=== PATIENT | male | born 1950 | race Caucasian/White ===

== ENCOUNTER → 2017-06-03 | Outpatient (CLI) | payer MEDICARE, OTHER ==
[~2017-06-03] MED LIST: CIPRO 500MG TA500 MG PO; COLACE 100100 MG/CAP PO; FLAGYL500 MG PO; NO HOME MEDICATIONS; NORCO 325 MG-7.1 TAB PO; PERCOCET 325 MG1 TA2 PO; ZITHROMAX 250M250 MG PO
== END ==
LOC: COL.RAD 12:03
DX: K37 Unspecified appendicitis (principal)
CPT/HCPCS: Q9967

== ENCOUNTER 2018-03-21 19:09 | Emergency (ER) | payer OTHER, MEDICARE ==
[~2018-03-21] VITALS: Ht 177.8 cm; Wt 63.6 kg
[2018-03-21 19:12] VITALS: BP 167/93; TEMP 97.9
[2018-03-21] MEDS ORDERED: NORCO 325 MG-51 TAB PO (20:28)
[2018-03-21 20:40] VITALS: PULSE 75
== END 2018-03-21 20:40 | disposition home or self-care (01) ==
LOC: COL.ER 19:09
DX: S09.90XA Unspecified injury of head, initial encounter (principal); V89.2XXA Person injured in unspecified motor-vehicle accident, traffic, initial encounter; Z87.891 Personal history of nicotine dependence

== ENCOUNTER 2018-10-12 00:19 | Emergency (ER) | payer MEDICARE, OTHER ==
[~2018-10-12] VITALS: Ht 175.3 cm; Wt 60.5 kg
[~2018-10-12 00:19] MED LIST changes: +NORCO 325 MG-51 TAB PO
[2018-10-12 00:25] VITALS: BP 133/89; TEMP 99.3
[2018-10-12 01:19] VITALS: PULSE 81
== END 2018-10-12 01:20 | disposition home or self-care (01) ==
LOC: COL.ER 00:19
DX: T63.441A Toxic effect of venom of bees, accidental (unintentional), initial encounter (principal); Z88.0 Allergy status to penicillin; J44.9 Chronic obstructive pulmonary disease, unspecified
CPT/HCPCS: J8540

== ENCOUNTER 2019-08-10 18:09 | Inpatient (IN) | payer MEDICARE, OTHER ==
[~2019-08-10] VITALS: Ht 175.3 cm; Wt 61.4 kg
[2019-08-10 18:50] LABS: HEMATOCRIT 44.8 % (42.0-52.0); HEMOGLOBIN 14.9 g/dl (13.5-18.0); MEAN CELL VOLUME 91 fl (80.0-100.0); MEAN CORPUSCULAR HEMOGLOBIN 30 pg (27.0-31.0); MEAN CORPUSCULAR HGB CONC 33 g/dl (33.0-37.0); PLATELET COUNT 200 K/mm3 (130-400); RED BLOOD COUNT 4.92 M/mm3 (4.20-5.60)
[2019-08-10 19:03] LABS: ALBUMIN 4.3 gm/dL (3.5-5.0); CALCIUM 9.4 mg/dL (8.4-10.2); CREATININE, serum 0.69 (0.66-1.25); POTASSIUM 4.6 mmol/L (3.4-5.0); TOTAL PROTEIN 7.3 gm/dL (6.4-8.2)
[2019-08-10 20:12] LABS: COLLECTION METHOD CLEAN CATCH
[2019-08-10 20:24] LABS: MUCOUS Present /lpf; PH 5 (5-8); SQUAMOUS EPITHELIAL None Seen /hpf; URINE APPEARANCE Clear; URINE BACTERIA None Seen /hpf; URINE BILIRUBIN Negative (NEGATIVE); URINE BLOOD 2+ (NEGATIVE); URINE COLOR Yellow; URINE GLUCOSE Negative (NEGATIVE); URINE KETONE 1+ (NEGATIVE); URINE LEUKOCYTE ESTERASE Negative (NEGATIVE); URINE NITRATE Negative (NEGATIVE); URINE PROTEIN(semi-quant) Negative (NEGATIVE); URINE RBC 0-2 /hpf; URINE UROBILINOGEN Negative (NEGATIVE)
[2019-08-10 20:32] LABS: BAND 2 % (0-10); LYMPHOCYTE 3 % (20.0-51.0); NEUTROPHILS 92 % (42.0-75.2)
[2019-08-10 20:33] LABS: PLATELET ESTIMATE NORMAL (NORMAL)
[2019-08-10 23:44] VITALS: BP 99/53; PULSE 79; TEMP 99.4
--- NOTE | 2019-08-11 00:13 | NUR ---
Pt arrived to the floor via strecher. Pt was able to ambulate to the bed. Pt stated he does have mild pain but some positions help. He usually doesn't like to take pain medications he says. He is ok lying in the position that he is in. Pt requested some water and jello at this time. Pt was informed that he was on a clear liquid diet. Pt has his call light within reach and his bed is lowest position.
--- NOTE | 2019-08-11 02:41 | NUR ---
Pt currently in bed sleeping at this time. Pt has his call light within reach at this time.
[2019-08-11 04:06] VITALS: BP 100/60; PULSE 70; TEMP 98
[2019-08-11 05:59] LABS: BASO % 0.1 % (0.0-2.0); EOS # 0.1 (0.0-0.7); EOS % 1.4 % (0-4.0); GRAN # 6.1 (1.4-6.5); GRAN % 76.7 % (42.2-75.2); HEMATOCRIT 37.2 % (42.0-52.0); LYMPH # 1.2 (1.2-3.4); LYMPH % 15.2 % (20.0-51.0); MEAN CELL VOLUME 94 fl (80.0-100.0); MEAN CORPUSCULAR HEMOGLOBIN 31 pg (27.0-31.0); MEAN CORPUSCULAR HGB CONC 33 g/dl (33.0-37.0); MEAN PLATELET VOLUME 10.3 fl (7.4-10.4); MONO # 0.5 (0.1-0.6); MONO % 6.3 % (1.7-9.3); PLATELET COUNT 160 K/mm3 (130-400); RED BLOOD COUNT 3.98 M/mm3 (4.20-5.60); REDCELL DISTRIBUTION WIDTH-CV 14.1 % (11.5-14.5)
--- NOTE | 2019-08-11 06:00 | NUR ---
Pt has slept well during the night. Pt has not requested anything for pain . Pt call light is within reach.
[2019-08-11 06:11] LABS: CREATININE, serum 0.65 (0.66-1.25)
[2019-08-11 06:34] LABS: HEMOGLOBIN 12.2 g/dl (13.5-18.0)
--- NOTE | 2019-08-11 07:41 | NUR ---
Sitting up in bed with eyes open. Able to tolerate clear liquid breakfast without difficulty. Denies pain but says that he has minimal discomfort in low back. When in right position he is good. in room with the patient. Denies additional needs at this time.
--- NOTE | 2019-08-11 07:42 | NUR ---
Reported off to SOLANGE Jhaveri. Pt currently sitting up in bed. Pt just finished his breakfast. Pt had no complaints of pain during the night. Pt currently has NS running to his right AC. Pt has his call light within reach, his is at his bedside.
--- NOTE | 2019-08-11 09:40 | NUR ---
SW met with the patient to discuss discharge plan. The patient lives in [place] with his , [place] ([id number]#[phone]). He reports independence with ADLs and does not have any DME. The patient's PCP is Dr. Taran Puente and he receives his medications at [facility]. He reports no difficulties obtaining his meds. The patient does not have advanced directives in EMR, but he reports that the believes he has them completed. He states that his would be his DPOA-HC. The patient plans to return home with his upon discharge. No additional needs at this time.
[2019-08-11 09:50] VITALS: BP 102/64; PULSE 52; TEMP 98.3
--- NOTE | 2019-08-11 11:02 | NUR ---
Patient ambulating in halls. Denies pain or needs at this time.
--- NOTE | 2019-08-11 12:10 | NUR ---
Sitting up in bed with eyes open. Denies pain or any needs at this time.
[2019-08-11 15:43] VITALS: BP 116/73; PULSE 64; TEMP 98.4
--- NOTE | 2019-08-11 17:36 | NUR ---
Patient up independently in room and ambulates in halls. Denies pain or needs at this time.
[2019-08-11 19:12] VITALS: BP 117/75; PULSE 59; TEMP 98.4
[2019-08-11 23:28] VITALS: BP 118/63; PULSE 68; TEMP 98.7
[2019-08-12 03:49] VITALS: BP 106/63; PULSE 66; TEMP 98.2
--- NOTE | 2019-08-12 04:32 | NUR ---
Patient has been able to rest this shift. Patient walked the halls independently. No complaints of nausea, vomiting or pain this shift.
[2019-08-12 06:21] LABS: BASO % 0.3 % (0.0-2.0); EOS # 0.2 (0.0-0.7); EOS % 2.5 % (0-4.0); GRAN # 5.1 (1.4-6.5); GRAN % 72.1 % (42.2-75.2); HEMATOCRIT 40.9 % (42.0-52.0); HEMOGLOBIN 13.4 g/dl (13.5-18.0); LYMPH # 1.1 (1.2-3.4); MEAN CELL VOLUME 93 fl (80.0-100.0); MEAN CORPUSCULAR HEMOGLOBIN 30 pg (27.0-31.0); MEAN CORPUSCULAR HGB CONC 33 g/dl (33.0-37.0); MEAN PLATELET VOLUME 10.7 fl (7.4-10.4); MONO # 0.6 (0.1-0.6); MONO % 8.8 % (1.7-9.3); PLATELET COUNT 186 K/mm3 (130-400); RED BLOOD COUNT 4.42 M/mm3 (4.20-5.60)
[2019-08-12 08:06] VITALS: BP 111/72; PULSE 66; TEMP 98.1
--- NOTE | 2019-08-12 08:42 | NUR ---
Patient has been up and ambulating halls. His now at bedside. rounded. Orders obtained. Diet to progress to Low fiber, education provided. Iv antibioitc to switch to PO. He is plans to dischage this afternoon.
--- NOTE | 2019-08-12 11:04 | NUR ---
Patient tolerated low fiber breakfast,no nausea. Asking when he can dismiss. He ambulated the halls again & did well
[2019-08-12 12:10] VITALS: BP 114/75; PULSE 68; TEMP 98
[2019-08-12] MEDS ORDERED: CIPRO 500MG TA500 MG PO (13:52)
[2019-08-12] MEDS ORDERED: FLAGYL500 MG PO (13:52)
--- NOTE | 2019-08-12 15:28 | NUR ---
Patient ready for discharge. rounded. We reviewed all discharge paperwork. He reports going to pharmacy when he leaves to pickle sorter prescriptions, denies questions regaurding medications. We again reviewed diet. Int Dc. His taking him home.
== END 2019-08-12 15:30 | disposition home or self-care (01) | DRG 392 ==
LOC: COL.ER 18:09 → SURG 20:21
PROVIDERS: Nurse Practitioner; ADMIT Surgery
DX: K57.20 Diverticulitis of large intestine with perforation and abscess without bleeding (principal); Z87.891 Personal history of nicotine dependence
CPT/HCPCS: J0744; J1170; J1956; J2405; J7030; Q9967

== ENCOUNTER → 2020-11-09 | Outpatient (CLI) | payer MEDICARE, OTHER | LOC: COL.RAD 13:59 | DX: Z12.2 Encounter for screening for malignant neoplasm of respiratory organs (principal); Z87.891 Personal history of nicotine dependence ==